=== PATIENT | male | born 1990 | race Caucasian/White ===

== ENCOUNTER 2016-09-08 17:18 | Emergency (ER) | payer SELFPAY | END 2016-09-08 19:35 | disposition home or self-care (01) | LOC: ER 17:18 ==

== ENCOUNTER 2016-10-04 14:04 | Emergency (ER) | payer SELFPAY | END 2016-10-04 15:26 | disposition home or self-care (01) | LOC: ER 14:04 | DX: K02.9 Dental caries, unspecified (principal); K04.7 Periapical abscess without sinus ==